=== PATIENT | female | born 1940 | race Hispanic/Latino ===

== ENCOUNTER 2017-08-23 05:47 | Day surgery (SDC) | payer MEDICARE, OTHER ==
[2017-08-16 09:33] VITALS: BMI 29.2
--- NOTE | 2017-08-23 05:13 | HP ---
DATE OF EXAM: 08/23/2017 REASON FOR ADMISSION: Left heart cath, possible angioplasty, abnormal stress test. BRIEF CLINICAL HISTORY: This is a 76-year-old female with past medical history significant for history of STEMI with PTCA done. Patient had recent PTCA for in-stent restenosis done in 2014, at which time he had abnormal stress test, probably abnormal myocardial perfusion study, partial reversible apical defect suggestive of a residual ischemia, apical and distant inferior. In comparison with the last study dated 07/15/2015, it is smaller in current study, but reversible. PAST MEDICAL HISTORY: Significant for diabetes, hypertension and hyperlipidemia, history of LAD with a bare-metal stent done on 12/17/2014, bare-metal stent because the patient is allergic to aspirin, so, bare-metal stent was placed at that time. Later on, patient has been not allergic to the stent. Patient underwent a stress test dated 07/15/2105, which was abnormal. The patient had cardiac catheterization at that time that revealed patent stent. CARDIAC WORKUP: As follows: Patient had a cardiac catheterization done on 08/09/2015 that shows patent stent in LAD, RCA nondominant, RV marginal branch occluded, very small caliber, less than 1.5 cm; medical treatment recommended. Patient had a repeat stress test done dated 08/06/2017 that shows ejection fraction 72%, partially reversible inferior defect, suggestive of residual ischemia. Patient had echocardiography done that shows ejection fraction 77%, mild mitral regurgitation, mild tricuspid regurgitation. SOCIAL HISTORY: No smoking. Denies any history of alcohol abuse. CURRENT MEDICATIONS: Patient is taking at home, valsartan/hydrochlorothiazide 320/12.5, metoprolol succinate 50 mg daily, metformin 850 mg, Pepcid 20 mg, Zetia 10 mg, clopidogrel 75 mg, atorvastatin 80 mg, aspirin 81 mg daily. REVIEW OF SYSTEMS: As per HPI. PHYSICAL EXAMINATION: As follows: VITAL SIGNS: Height of the patient 5 feet 5 inches, weight of the patient is 176 pounds, body mass index 29.3 kg/m2, blood pressure 130/80, heart rate 70. HEENT: PERRLA intact. NECK: Supple. No carotid bruits or thyromegaly. CHEST: Clear to auscultation. HEART: S1 and S2 regular. ABDOMEN: Soft. EXTREMITIES: Clubbing and cyanosis negative. LABORATORY DATA: Blood workup pending. IMPRESSION: Abnormal stress test, ejection fraction preserved, history of percutaneous transluminal coronary angioplasty with bare-metal stent in 12/17/2014. Repeat cath in 08/09/2015, patent stent. Since the stress test is abnormal, the patient is scheduled for an elective cardiac catheterization, possible diabetes, hyperlipidemia. RECOMMENDATION: We will load with aspirin and Plavix. If basic blood workup within normal limits, we will proceed for cardiac catheterization. Further recommendation after cardiac catheterization. Thank you Dr. Portillo/Dr. Truong for providing us the opportunity in taking care of Anusha Cashproopal. We will follow with you. Shruthi Pierce MD
[2017-08-23] MEDS ORDERED: Phenylephrine 10 mg/ml Inj ONE (06:58)
[2017-08-23] MEDS ORDERED: Verapamil 2 ML ONE (06:58)
[2017-08-23] MEDS ORDERED: Lidocaine 2% Inj (20ml) ONE (06:58)
[2017-08-23] MEDS ORDERED: Iodixanol 320 MG/ML 200 ML BOTTLE IV ONE (06:59)
[2017-08-23] MEDS ORDERED: Iodixanol 320 MG/ML 100 ML BOTTLE IV ONE (06:59)
[2017-08-23] MEDS ORDERED: Nitroglycerin 50mg in D5W 0 MG/0 ML BOTTLE IV ONE (06:59)
[2017-08-23] MEDS ORDERED: HEPARIN SODIUM/NS 2,000 ML IV ONE (06:59)
[2017-08-23] MEDS ORDERED: Iohexol 350mgl/ml 50 ML ONE (06:59)
[2017-08-23] MEDS ORDERED: Midazolam 2 MG/2 ML VIAL ONE (06:59)
[2017-08-23 07:10] LABS: BASO # 0.02 K/mm3 (0.0-2.0); BASO % 0.3 % (0.0-3.0); EOS # 0.1 (0.0-0.7); EOS % 1.3 % (1.5-5.0); GRAN # 4.5 (1.4-6.5); GRAN % 58.5 % (50.0-68.0); HEMOGLOBIN 12.5 g/dL (12.0-16.0); LYMPH # 2.4 (1.2-3.4); LYMPH % 31.6 % (22.0-35.0); MEAN CORPUSCULAR HEMOGLOBIN 29.8 pg (25.0-35.0); MEAN CORPUSCULAR HGB CONC 33.2 g/dl (31.0-37.0); MEAN PLATELET VOLUME 9.6 fl (7.0-11.0); MONO # 0.6 (0.1-0.6); MONO % 8.3 % (1.0-6.0); RBC 4.19 10^6/uL (3.5-6.1); RED CELL DISTRIBUTION WIDTH 15.7 % (11.5-14.5); WHITE BLOOD COUNT 7.7 10^3/ul (4.5-11.0)
[2017-08-23 07:15] LABS: BLOOD UREA NITROGEN 36 mg/dL (7-21); CALCIUM 9.8 mg/dL (8.4-10.5); GFR AFRICAN-AMERICAN > 60; GFR NON-AFRICAN AMERICAN > 60; HDL CHOLESTEROL 39 mg/dL (29-60)
[2017-08-23 07:25] LABS: LDL CHOLESTEROL 98 mg/dL (0-129)
[2017-08-23 07:35] LABS: INR 0.98 (0.93-1.08); PROTHROMBIN TIME 11.3 SECONDS (9.4-12.5)
[2017-08-23 08:01] VITALS: RESP 18; TEMP 98.2
[2017-08-23] MEDS ORDERED: Bacitracin 500 Units/gm Oint Foilpak UD TOP ONE (08:23)
[2017-08-23] MEDS ORDERED: Sodium Chloride 0.9% 1,000 ML IV SCH (08:30)
[2017-08-23] MEDS ORDERED: Potassium Chloride 20 mEq ER Tab PO ONE (09:00)
--- NOTE | 2017-08-23 10:39 | CARD ---
APPROVED REPORT EKG Measurement Heart [id number] <Conclusion> Normal sinus rhythm Left axis deviation Right bundle branch block NSSTW changes No change
[2017-08-23] MEDS ORDERED: Bacitracin 500 Units/gm Oint Foilpak UD ONE (10:51)
[2017-08-23 12:05] VITALS: BP 127/70; PULSE 79; O2SAT 96
--- NOTE | 2017-08-23 12:15 | CARD ---
APPROVED REPORT Procedure(s) performed: Left Heart Catheterization HISTORY The patient is a 76 year-old female with a history of : most recent EF: 72%. (EF Method: RADIONUCLIDE), previous diagnostic cath, previous PCI (The PCI date was 03/01/2015), hypertension , dyslipidemia . INDICATION The indication(s) include : positive stress test. CASE TECHNIQUE The patient was brought electively to the Cardiac Catheterization Laboratory in a fasting state and was prepped and draped in a sterile manner. The left wrist was infiltrated with 2% Lidocaine subcutaneous anesthesia. A 6FR Cono-CDESWatly BVTH ACCESS KIT sheath was inserted into the left radial artery without difficulty. Coronary angiography was performed using coronary diagnostic catheters. The left coronary system was accessed and visualized with a Diagnostic ,5 Fr JL 4 catheter. The right coronary system was accessed and visualized with a Diagnostic ,5 Fr JR 4 catheter. The left ventricle was accessed and visualized with a 5 Fr Pigtail 145 (Angled) catheter. Left ventricular/Aortic Valve gradient assessed on pullback. Left ventriculogram was performed in MANN projection. The patient tolerated the procedure well and there were no complications associated with the procedure. Vessel Analysis The patient's coronary anatomy is left dominant. The left main coronary artery is a medium size vessel with intimal irregularities and without significant stenosis. The left main trifurcates to the left anterior descending, circumflex, and ramus. The left anterior descending artery is a medium size vessel with diffuse calcification noted throughout this vessel and without significant stenosis. patent stent in Mid LAD The first diagonal branch is a small size vessel with intimal irregularities and without significant stenosis. The circumflex artery is a medium size vessel with diffuse calcification noted throughout this vessel and without significant stenosis. The first obtuse marginal branch is a medium size vessel with diffuse calcification noted throughout this vessel and without significant stenosis. The ramus intermedius artery is a medium size vessel with diffuse calcification noted throughout this vessel and without significant stenosis. The right coronary artery is a small size vessel with diffuse calcification noted throughout this vessel and without significant stenosis. RV marginal Br occluded Left Ventricle The left ventricle is normal in size with normal contractility. There was no cardiomyopathy. The left ventricular ejection fraction is estimated to be 60-65%. The left ventricular end diastolic pressure is 18 mmHg. There was no gradient across the aortic valve upon pullback. Conclusion Patent Stent In LAD (BMS) Rv marginal Br. distally occluded arising from Non dominant RCA Preserved LV FX. EF-60-65%,EDP-18 mmof Hg Essentially unchanged Cath Findings from 07/2015 ( previous Cath) Recommendations Aggressive Medical Therapy Cc;alia stevenson/ Alexi.
== END 2017-08-23 12:40 | disposition home or self-care (01) ==
LOC: CATH 05:47
PROVIDERS: ATTEND Internal Medicine Cardiovascular Disease
DX: I25.10 Atherosclerotic heart disease of native coronary artery without angina pectoris (principal); E11.9 Type 2 diabetes mellitus without complications; I10 Essential (primary) hypertension; E78.5 Hyperlipidemia, unspecified; I25.2 Old myocardial infarction; Z79.84 Long term (current) use of oral hypoglycemic drugs; Z88.6 Allergy status to analgesic agent; Z95.5 Presence of coronary angioplasty implant and graft
CPT/HCPCS: 36415; 80048; 80061; 85025; 85610; 85730; 86850; 86900; 93005; 93458; 99152; C1769; C1887 ×2; J1644 ×2; J1940; J2250; J3010; J7030; J7040; Q9967 ×2